=== PATIENT | female | born 1955 | race Caucasian/White ===

== ENCOUNTER 2019-10-30 11:52 | Day surgery (SDC) | payer BC ==
[~2019-10-30] VITALS: Ht 154.9 cm; Wt 93.9 kg
[~2019-10-30 11:52] MED LIST: ATEN25 PO; CENTRUM SILVER1 EAC2 PO; Calcium + Vita1 EACH PO; FISH OIL PO; GLUCOSAMINE-CH900 MG PO; Lovastatin10 MG PO
--- NOTE | 2019-10-30 12:42 | NUR ---
Ambulatory in Day Surgery. Surgical site prepped with 2% Chlorhexidine cloth wipe. History, Chart, Medications and Allergies reviewed before start of procedure. Lungs clear T/O to Auscultation. Patient confirms NPO status and agrees with scheduled surgery. Pre-Op teaching done. Pt verbalizes understanding. Patient reports completing Chlorhexadine shower X2 prior to admission to hospital.
--- NOTE | 2019-10-30 18:28 | NUR ---
SHIFT SUMMARY A/O X4, VSS, S/P L TKA. TOLERATING PO, WAITING PO VOID. WIGGLES TOES, MANAGING PAIN PER EMAR. WILL REPORT TO ONCOMING NOC RN.
[2019-10-31 04:56] LABS: BASOPHILS ABSOLUTE AUTO 0.01 K/mm3 (0.00-0.23); BASOPHILS PERCENT AUTO 0 % (0-2); EOSINOPHILS PERCENT AUTO 0 % (0-6); Hematocrit 38.8 % (33.0-51.0); Hemoglobin 12.8 g/dL (11.5-16.0); IMMATURE GRAN ABSOLUTE AUTO 0.04 K/mm3 (0.00-0.10); IMMATURE GRAN PERCENT AUTO 0 % (0-1); LYMPHOCYTES ABSOLUTE AUTO 0.88 K/mm3 (0.84-5.20); LYMPHOCYTES PERCENT AUTO 8 % (21-46); MONOCYTES ABSOLUTE AUTO 0.42 K/mm3 (0.16-1.47); MONOCYTES PERCENT AUTO 4 % (4-13); Mean Corpuscular HGB 29.3 pg (26.0-34.0); Mean Corpuscular Volume 89 fL (80-100); Mean Platelet Volume 10.2 fL (9.1-12.4); NEUTROPHILS PERCENT AUTO 88 % (41-73); Platelet Count 185 K/mm3 (150-400); RDW Coefficient Variation 12.3 % (11.7-14.2); RDW Standard Deviation 40.2 fL (35.1-46.3); Red Blood Cell Count 4.37 M/mm3 (3.80-5.20); White Blood Cell Count 11.45 K/mm3 (4.00-11.30)
[2019-10-31 05:12] LABS: Anion Gap 3 mmol/L (6-16); Blood Urea Nitrogen 18 mg/dL (8-24); Bun/Creatinine Ratio 24.2 (12.0-20.0); CO2, Blood 28 mmol/L (21-32); Calcium, Blood 8.7 mg/dL (8.5-10.1); Chloride, Blood 107 mmol/L (98-108); Creatinine, Blood 0.74 mg/dL (0.40-1.00); Glomerular Filtration Rate >60 (60-); Glucose, Blood 167 mg/dL (70-99); Potassium, Blood 4.4 mmol/L (3.5-5.5); Sodium, Blood 138 mmol/L (136-145)
--- NOTE | 2019-10-31 06:29 | NUR ---
SHIFT SUMMARY: NAYELI IS POD1 FOR L TKA. SHE IS TOLERATING PO INTAKE WELL. SHE IS AMBULATING TO THE BATHROOM WITH A 1 PERSON ASSIST, URINATING WITHOUT DIFFICULTY. SHE STATES THAT HER PAIN IS WELL CONTROLLED WITH THE USE OF APAP, TORADOL AND OXYCODONE. AQUACELL TO L KNEE C/D&I, BELINDA HOSE, POLAR PACK AND SCDs IN PLACE. IV TO LEFT HAND PATENT. SHE USES HER CALL LIGHT APPROPRIATLEY. SHE IS SITTING IN THE RECLINER WITH HER CALL LIGHT IN REACH. WILL REPORT TO DAY SHIFT RN.
[2019-10-31] MEDS ORDERED: Percocet 5-3251 EACH PO (08:45)
[2019-10-31] MEDS ORDERED: ASPI81CH PO (08:45)
--- NOTE | 2019-10-31 15:01 | NUR ---
DISCHARGED DC'D IV, CATHETER INTACT. REVIEWED DC PAPERWORK; PT VERBALIZED UNDERSTANDING. PASSED PT. PT LEFT UNIT IN WC W/POSSESSIONS, DC PAPERWORK, DRESSING CHANGES AND POLAR PACK ACCOMPANIED BY SPOUSE.
== END 2019-10-31 15:02 | disposition home or self-care (01) ==
LOC: ORSCMMR 11:52 → PRE IP 12:30 → EDSTATUS 12:30 → SURS 17:04 → ORSCMMR 10-31 15:02
PROVIDERS: Orthopaedic Surgery
PROC: 8E0Y0CZ Robotic Assisted Procedure of Lower Extremity, Open Approach (ICD-10-PCS; principal; 2019-10-30 12:30)
PROC: 0SRD0JA Replacement of Left Knee Joint with Synthetic Substitute, Uncemented, Open Approach (ICD-10-PCS; principal; 2019-10-30 12:30)
DX: M17.12 Unilateral primary osteoarthritis, left knee (principal); Z01.818 Encounter for other preprocedural examination; I10 Essential (primary) hypertension; E78.5 Hyperlipidemia, unspecified; E66.01 Morbid (severe) obesity due to excess calories; Z68.39 Body mass index [BMI] 39.0-39.9, adult; Z79.899 Other long term (current) drug therapy
CPT/HCPCS: 27447; S2900; 36415; 73560-LT; 80048; 85025; 86850; 86900; 86901; 88300; 97110; 97116; 97162; 97530; C1776; J0690; J1100; J1885; J2250; J2405; J2704; J3010; J3370

== ENCOUNTER 2020-04-11 09:11 | Day surgery (SDC) | payer MEDICARE ==
[~2020-04-11] VITALS: Ht 154.9 cm; Wt 95.4 kg
[~2020-04-11 09:11] MED LIST changes: +ASPI81CH PO; +Percocet 5-3251 EACH PO
== END 2020-04-11 11:05 | disposition home or self-care (01) ==
LOC: ORSCSDS 09:11
PROVIDERS: Surgery
PROC: 0DJD8ZZ Inspection of Lower Intestinal Tract, Via Natural or Artificial Opening Endoscopic (ICD-10-PCS; principal; 2020-04-11 10:30)
DX: Z12.11 Encounter for screening for malignant neoplasm of colon (principal); Z86.010 Personal history of colon polyps; E66.01 Morbid (severe) obesity due to excess calories; Z68.36 Body mass index [BMI] 36.0-36.9, adult; Z79.899 Other long term (current) drug therapy
CPT/HCPCS: J2704; J7120

== ENCOUNTER → 2021-12-15 | Outpatient (CLI) | payer MEDICARE ==
[2021-12-15 16:13] LABS: Calcium, Blood 9.3 mg/dL (8.5-10.1); Creatinine, Blood 0.89 mg/dL (0.40-1.00); Magnesium, Blood 1.9 mg/dL (1.6-2.4); Potassium, Blood 4.2 mmol/L (3.5-5.5)
== END | disposition home or self-care (01) ==
LOC: LAB SHORT 11:45 → LAB 11:45
PROVIDERS: Hospitalist
DX: R25.2 Cramp and spasm (principal)
CPT/HCPCS: 80048; 83735

== ENCOUNTER → 2023-12-12 | Outpatient (CLI) | payer MEDICARE ==
[2023-12-12 18:31] LABS: CHOL/HDL RATIO 2.6; Cholesterol 134 mg/dL (50-200); HDL Cholesterol 52 mg/dL (>39); LDL/HDL RATIO 1.1; Low Density Lipoprotein Chol 56 mg/dL (0-110); Triglycerides 128 mg/dL (30-160); Very Low Density Lipoprot Chol 25 mg/dL (6-32)
== END | disposition home or self-care (01) ==
LOC: LAB SHORT 08:35 → LAB 08:35
PROVIDERS: Hospitalist
DX: E78.5 Hyperlipidemia, unspecified (principal)
CPT/HCPCS: 80061